=== PATIENT | female | born 1985 | race Caucasian/White ===

== ENCOUNTER → 2018-09-09 | Outpatient (CLI) | payer BC | LOC: RAD 12:16 | DX: Z76.89 Persons encountering health services in other specified circumstances (principal); M51.36 Other intervertebral disc degeneration, lumbar region; G43.909 Migraine, unspecified, not intractable, without status migrainosus ==

== ENCOUNTER → 2018-09-14 | Outpatient (CLI) | payer BC | LOC: RAD 15:56 | DX: Z76.89 Persons encountering health services in other specified circumstances (principal); M51.17 Intervertebral disc disorders with radiculopathy, lumbosacral region; G43.909 Migraine, unspecified, not intractable, without status migrainosus ==

== ENCOUNTER 2019-02-19 21:24 | Emergency (ER) | payer BC ==
[2019-02-19] MEDS ORDERED: CYCLOBENZAPRINE10 M1 PO (21:36)
[2019-02-19] MEDS ORDERED: ACETAMINOPHEN-H1 TA2 PO (21:36)
[2019-02-19] MEDS ORDERED: SUMATRIPTAN SUC50 M1 PO (21:37)
[2019-02-19 22:00] LABS: EOS # 0.2 (0.04-0.40); EOS % 2.7 % (1.0-5.0); HEMATOCRIT 35.3 % (37.0-47.0); HEMOGLOBIN 12.5 g/dL (12.5-16.0); LYMPH# 3.1 (1.50-4.00); MEAN CELL VOLUME 89 fl (78-100); MEAN CORPUSCULAR HEMOGLOBIN 32 pg (27-31); MEAN CORPUSCULAR HGB CONC 35 g/dL (33-37); MEAN PLATELET VOLUME 9.5 fl (7.4-10.4); MONO # 0.8 (0.20-0.80); NEU # 3.3 (1.40-6.50); PLATELET COUNT 228 K/mm3 (130-400); RED BLOOD COUNT 3.95 M/mm3 (4.10-5.30); RED CELL DISTRIBUTION WIDTH 12.9 % (11.5-14.5); WHITE BLOOD COUNT 7.4 K/mm3 (4.8-10.8)
[2019-02-19 23:26] VITALS: BP 127/81
== END 2019-02-19 23:26 | disposition home or self-care (01) ==
LOC: ED 21:24
PROVIDERS: Family Medicine
DX: N93.8 Other specified abnormal uterine and vaginal bleeding (principal); G43.909 Migraine, unspecified, not intractable, without status migrainosus; Z98.51 Tubal ligation status

== ENCOUNTER → 2019-04-21 | Outpatient (CLI) | payer BC ==
[~2019-04-21] MED LIST: ACETAMINOPHEN-H1 TA2 PO; CYCLOBENZAPRINE10 M1 PO; SUMATRIPTAN SUC50 M1 PO
== END ==
LOC: LAB 10:30
DX: J02.0 Streptococcal pharyngitis (principal)

== ENCOUNTER → 2019-10-28 | Outpatient (CLI) | payer MEDICAID | LOC: RAD 10:29 | DX: G57.91 Unspecified mononeuropathy of right lower limb (principal); M51.37 Other intervertebral disc degeneration, lumbosacral region; M47.816 Spondylosis without myelopathy or radiculopathy, lumbar region; M47.817 Spondylosis without myelopathy or radiculopathy, lumbosacral region; M50.30 Other cervical disc degeneration, unspecified cervical region; M51.36 Other intervertebral disc degeneration, lumbar region; D22.9 Melanocytic nevi, unspecified ==

== ENCOUNTER 2020-11-16 13:52 | Outpatient (RCR) | payer MEDICAID ==
[~2020-11-16 13:52] MED LIST changes: +KETOROLAC10 MG PO
== END 2021-02-14 | disposition still patient (30) ==
LOC: PT
DX: G89.29 Other chronic pain (principal)

== ENCOUNTER → 2021-07-03 | Outpatient (CLI) | payer MEDICAID ==
[2021-07-03 16:54] LABS: BASO # 0.03 K/mm3 (0.02-0.10); EOS # 0.15 K/mm3 (0.04-0.40); EOS % 1.9 % (1.0-5.0); HEMATOCRIT 38.1 % (37.0-47.0); HEMOGLOBIN 13.5 g/dL (12.5-16.0); MEAN CELL VOLUME 86 fl (78-100); MEAN CORPUSCULAR HEMOGLOBIN 31 pg (27-31); MEAN CORPUSCULAR HGB CONC 35 g/dL (33-37); MEAN PLATELET VOLUME 9.4 fl (7.4-10.4); MONO # 0.73 K/mm3 (0.20-0.80); NEU # 4.94 K/mm3 (1.40-6.50); PLATELET COUNT 235 K/mm3 (130-400); RED BLOOD COUNT 4.43 M/mm3 (4.10-5.30); RED CELL DISTRIBUTION WIDTH 12.1 % (11.5-14.5)
[2021-07-03 17:04] LABS: ALBUMIN 4.5 g/dL (3.5-5.0)
[2021-07-03 17:06] LABS: TOTAL PROTEIN 7.7 g/dL (6.4-8.3)
[2021-07-03 17:08] LABS: TOTAL BILIRUBIN 0.6 mg/dL (0.2-1.2)
== END ==
LOC: LAB 16:43
PROVIDERS: Physician Assistant
DX: Z00.00 Encounter for general adult medical examination without abnormal findings (principal); Z13.1 Encounter for screening for diabetes mellitus; Z83.3 Family history of diabetes mellitus; Z13.29 Encounter for screening for other suspected endocrine disorder

== ENCOUNTER → 2022-07-02 | Outpatient (CLI) | payer MEDICAID ==
[~2022-07-02] MED LIST changes: +AMOXICILLIN AND1 TA2 PO; +ZOFRAN ODT4 MG PO
[2022-07-02 11:39] LABS: BASO # 0.04 K/mm3 (0.02-0.10); EOS # 0.23 K/mm3 (0.04-0.40); EOS % 3.4 % (1.0-5.0); HEMATOCRIT 32.9 % (37.0-47.0); HEMOGLOBIN 11.5 g/dL (12.5-16.0); LYMPH# 2.63 K/mm3 (1.50-4.00); MEAN CELL VOLUME 89 fl (78-100); MEAN CORPUSCULAR HEMOGLOBIN 31 pg (27-31); MEAN CORPUSCULAR HGB CONC 35 g/dL (33-37); MONO # 0.49 K/mm3 (0.20-0.80); NEU # 3.27 K/mm3 (1.40-6.50); PLATELET COUNT 263 K/mm3 (130-400); RED BLOOD COUNT 3.71 M/mm3 (4.10-5.30); RED CELL DISTRIBUTION WIDTH 12.3 % (11.5-14.5); WHITE BLOOD COUNT 6.7 K/mm3 (4.8-10.8)
[2022-07-02 11:45] LABS: POTASSIUM 3.3 mmol/L (3.5-5.1); SODIUM 140 mmol/L (136-145)
[2022-07-02 11:46] LABS: CALCIUM 9.4 mg/dL (8.3-10.5)
[2022-07-02 11:47] LABS: GLUCOSE 99 mg/dL (65-105); TOTAL PROTEIN 6.9 g/dL (6.4-8.3)
[2022-07-02 11:48] LABS: CARBON DIOXIDE 27 mmol/L (22-29)
[2022-07-02 11:49] LABS: TOTAL BILIRUBIN 0.4 mg/dL (0.2-1.2)
[2022-07-02 11:53] LABS: AST-SGOT 20 U/L (5-34)
[2022-07-02 11:54] LABS: ALT/SGPT 24 U/L (0-55)
[2022-07-02 12:56] LABS: ERYTHROCYTE SEDIMENTATION RATE 45 mm/hr (0-20)
== END ==
LOC: LAB 11:25
PROVIDERS: Physician Assistant
DX: K52.9 Noninfective gastroenteritis and colitis, unspecified (principal); R51.9 Headache, unspecified; R50.9 Fever, unspecified; R11.2 Nausea with vomiting, unspecified